=== PATIENT | male | born 1985 | race American Indian/Alaskan Native ===

== ENCOUNTER 2017-05-02 01:57 | Emergency (ER) | payer SELFPAY ==
[2017-05-02] MEDS ORDERED: DILAUDID IV ONE ×2 (02:09→02:57)
[2017-05-02] MEDS ORDERED: ZOFRAN IV ONE (02:09)
[2017-05-02] MEDS ORDERED: AMIDATE IV ONE ×3 (03:09→03:35)
--- NOTE | 2017-05-02 03:15 | XRay Report ---
FINAL REPORT PROCEDURE: XR SHOULDER 2 LT TECHNIQUE: LEFT shoulder radiographs including AP views in internal and external rotation. CPT 32750 HISTORY: deformity, pain COMPARISON: No prior studies are available for comparison. FINDINGS: There is anterior dislocation of the left glenohumeral joint. The scapula and clavicle and soft tissues are unremarkable. IMPRESSION: Anterior dislocation of the left shoulder. There is no fracture.
[2017-05-02] MEDS ORDERED: DIPRIVAN 10 MG/ML IV ONE ×2 (03:21→03:35)
[2017-05-02] MEDS ORDERED: TORADOL IV ONE (03:45)
--- NOTE | 2017-05-02 03:51 | Emergency Department Report ---
ED Upper Extremity Inj HPI - General Chief Complaint: Shoulder Injury Stated Complaint: SHOULDER PAIN Time Seen by Provider: 05/02/17 02:09 Source: patient, EMS Mode of arrival: Ambulatory Limitations: No Limitations - History of Present Illness Initial Comments: 31-year-old right-hand dominant male with history of shoulder dislocations presents to the hospital complaining of left shoulder dislocation. Patient states he has dislocated his right shoulder multiple times and this is a second time he has dislocated his left shoulder. His arms up with his hands behind his head when he felt his left shoulder slip out of place. 08/01 aching pain reported as constant, worse with movement, no alleviating factors although improved with immobilization. Patient never been evaluated by orthopedic physician. Patient has received anesthesia in the past without medication. - Related Data Previous Rx's Medication Instructions Recorded Last Taken Type Ibuprofen [Motrin] 800 mg PO Q8HR PRN #30 tablet 05/02/17 Unknown Rx traMADol [Ultram 50 MG tab] 50 mg PO Q6HR PRN #20 tablet 05/02/17 Unknown Rx Allergies Allergy/AdvReac Type Severity Reaction Status Date / Time No Known Allergies Allergy Verified 05/02/17 03:15 ED Review of Systems ROS: Stated complaint: SHOULDER PAIN Other details as noted in HPI Comment: All other systems reviewed and negative Other: Constitutional: No fevers chills Eyes: No eye pain visual changes ENT: No ear pain or throat pain Neck: Denies pain Respiratory: Denies cough wheezing shortness of breath Cardiovascular: Denies chest pain, palpitations, syncope GI: Denies abdominal pain, nausea, vomiting, diarrhea : Denies dysuria Musculoskeletal: As per HPI Skin: Denies rash, lesions, erythema Neurologic: Denies headache, numbness, weakness Psychiatric: Denies suicidal ideation, hallucinations ED Past Medical Hx - Past Medical History Previous Medical History?: Yes Additional medical history: R shoulder dislocation - Surgical History Past Surgical History?: No - Social History Smoking Status: Current Every Day Smoker Substance Use Type: Alcohol, Marijuana - Medications Home Medications: Home Medications Medication Instructions Recorded Confirmed Last Taken Type Ibuprofen [Motrin] 800 mg PO Q8HR PRN #30 tablet 05/02/17 Unknown Rx traMADol [Ultram 50 MG tab] 50 mg PO Q6HR PRN #20 tablet 05/02/17 Unknown Rx ED Physical Exam - General Limitations: No Limitations - Other Other exam information: General: No limitations, patient is alert in no acute distress Head exam: Atraumatic, normocephalic Eyes exam: Normal appearance, pupils equal reactive to light, extraocular movements intact ENT: Moist mucous membrane, normal oropharynx Neck exam: Normal inspection, full range of motion, no meningismus nontender Respiratory exam: Clear to auscultation bilateral, no wheezes, rales, crackles Cardiovascular: Normal rate and rhythm, normal heart sounds Abdomen: Soft, nondistended, and nontender, with normal bowel sounds, no rebound, or guarding Extremity: Deformity to left shoulder, held internally rotated and adducted. Movement is limited with pain in all directions. Sensation intact over the deltoid and forearm. Good hand carpenter labor supervisor Back: Normal Inspection, full range of motion, no tenderness Neurologic: Alert, oriented x3, cranial nerves intact, no motor or sensory deficit Psychiatric: normal affect, normal mood Skin: Warm, dry, intact ED Course Vital Signs 05/02/17 05/02/17 05/02/17 02:14 02:23 02:58 Temperature 98.4 F Temperature [ Intra-Procedure ] Temperature [ Pre-Procedure] Pulse Rate 108 H Pulse Rate [ Intra-Procedure ] Pulse Rate [Pre -Procedure] Respiratory 18 20 18 Rate Respiratory Rate [Intra- Procedure] Respiratory Rate [Pre- Procedure] Blood Pressure [Intra- Procedure] Blood Pressure [Pre-Procedure] Blood Pressure 135/88 [Right] O2 Sat by Pulse 99 98 Oximetry O2 Sat by Pulse Oximetry [ Intra-Procedure ] O2 Sat by Pulse Oximetry [Pre- Procedure] 05/02/17 05/02/17 05/02/17 03:16 03:20 03:24 Temperature Temperature [ 98.4 F 98.0 F Intra-Procedure ] Temperature [ 98.5 F Pre-Procedure] Pulse Rate Pulse Rate [ 108 H 107 H Intra-Procedure ] Pulse Rate [Pre 112 H -Procedure] Respiratory Rate Respiratory 24 15 Rate [Intra- Procedure] Respiratory 23 Rate [Pre- Procedure] Blood Pressure 152/100 159/92 [Intra- Procedure] Blood Pressure 164/105 [Pre-Procedure] Blood Pressure [Right] O2 Sat by Pulse Oximetry O2 Sat by Pulse 100 96 Oximetry [ Intra-Procedure ] O2 Sat by Pulse 100 Oximetry [Pre- Procedure] 05/02/17 03:26 Temperature Temperature [ 98.3 F Intra-Procedure ] Temperature [ Pre-Procedure] Pulse Rate Pulse Rate [ 99 H Intra-Procedure ] Pulse Rate [Pre -Procedure] Respiratory Rate Respiratory 16 Rate [Intra- Procedure] Respiratory Rate [Pre- Procedure] Blood Pressure 148/85 [Intra- Procedure] Blood Pressure [Pre-Procedure] Blood Pressure [Right] O2 Sat by Pulse Oximetry O2 Sat by Pulse 96 Oximetry [ Intra-Procedure ] O2 Sat by Pulse Oximetry [Pre- Procedure] - Reevaluation(s) Reevaluation #1: 05/02/17 04:30 Status post conscious sedation and reduction patient is alert. Received Toradol for residual pain. Patient received a total of Dilaudid 1 mg and 4 Zofran prior to reduction. - Moderate Sedation Indications: fracture/dislocation redu ASA Class: I Mallampati Airway Score: 1 Preparation: air sampling and monitoring applied, pulse oximeter, capnometry used, supplemental O2 applied, suction/airway equipment at bedside, IV secured IV Propofol Dose (mgs): 120 IV Etomidate Dose (mgs): 10 Complications: none Interventions: oxygen applied Patient Tolerated Procedure: well Additional Comments: Patient initially given etomidate 10 mg and became more intense and anxious. Since patient would not relax we changed to propofol IV. Patient need a total of 120 mg in order to relax enough to reduce the left shoulder. - Orthopedic Joint Reduction Joint #1 Consent Obtained: written consent Time Out Performed: Yes Side: left Joint Reduction Location: shoulder Analgesia: moderate sedation Shoulder Technique Used (if applicable): traction/counter-traction Technique Used: traction/counter-traction Post-Reduction Neuro Exam: intact Post-Reduction Vascular Exam: intact Post Reduction X-Ray Obtained: Yes Post Reduction X-Ray Results: reduced Splint Applied: Yes Patient Tolerated Procedure: well Additional Comments: Possible Hill-Sachs deformity Procedure start time 3:18 and finished at 3:31am ED Medical Decision Making - Radiology Data Radiology results: report reviewed, image reviewed (left shoulder x-ray post reduction: Successful reduction possible Hill-Sachs deformity) Left shoulder x-ray: Positive inferior anterior dislocation. No fracture - Medical Decision Making Patient successfully treated for left shoulder dislocation. Positive reduction with conscious sedation. Left arm immobilizer placed. Orthopedic follow-up will be encouraged. Pain medications will be prescribed - Differential Diagnosis fracture, dislocation, sprain Critical Care Time: No Critical care attestation.: If time is entered above; I have spent that time in minutes in the direct care of this critically ill patient, excluding procedure time. ED Disposition Clinical Impression: Recurrent dislocation, left shoulder, Hill Sachs deformity, left Disposition: DC- TO HOME OR SELFCARE Is pt being admited?: No Does the pt Need Aspirin: No Condition: Stable Instructions: Shoulder Dislocation (ED) Additional Instructions: Continue to wear the sling until cleared by the orthopedic surgeon. It is very important to follow-up so that you may undergo rehabilitation to strengthen the muscles and ligaments associated with your dislocation. There is also a mild deformity to the arm bone at the shoulder which may represent a mild fracture/ break (Hill-Sachs deformity). Take the medications as needed for pain. Prescriptions: Ibuprofen [Motrin] 800 mg PO Q8HR PRN #30 tablet PRN Reason: Pain traMADol [Ultram 50 MG tab] 50 mg PO Q6HR PRN #20 tablet PRN Reason: Pain Referrals: JEVON MANZANARES MD [Staff Physician] - 3-5 Days Time of Disposition: 04:36
[2017-05-02] MEDS ORDERED: TORADOL ONE (03:54)
[2017-05-02 05:14] VITALS: BP 129/81
--- NOTE | 2017-05-02 07:45 | XRay Report ---
LEFT SHOULDER, ONE VIEW History: Dislocation, pain, post reduction view. Findings: The anterior, inferior dislocation at the left glenohumeral joint has been reduced since 0225 hours. Alignment appears anatomic on single AP view. Normal articulation at the acromioclavicular joint. Hill-Sachs deformity is suspected along the lateral humeral head. Impression: Apparent anatomic alignment at the left shoulder. 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 MR left shoulder without contrast or MR left shoulder arthrogram would provide additional information if needed.
== END 2017-05-02 05:19 | disposition home or self-care (01) ==
LOC: ED 01:57
DX: M24.412 Recurrent dislocation, left shoulder (principal); F17.200 Nicotine dependence, unspecified, uncomplicated; F12.10 Cannabis abuse, uncomplicated; X58.XXXA Exposure to other specified factors, initial encounter; Y93.89 Activity, other specified; Y92.89 Other specified places as the place of occurrence of the external cause; Y99.8 Other external cause status
CPT/HCPCS: 23650; 73020; 73030; 96374; 96375; 96376; 99284; J1170; J1885; J2405; J2704

== ENCOUNTER 2022-04-08 21:42 | Emergency (ER) | payer SELFPAY ==
[2022-04-08] MEDS ORDERED: SODIUM CHLORIDE 0.9% 1000 ML 1,000 ML IV ONE (22:30)
[2022-04-08] MEDS ORDERED: ONDANSETRON 4 MG/2 ML INJ IV ONE (22:30)
[2022-04-08 23:33] LABS: Alanine Aminotransferase 20 units/L (7-56); Albumin 5.4 g/dL (3.9-5); BUN/Creatinine Ratio 15; Basophils % (Auto) 0.3 % (0.0-1.8); Blood Urea Nitrogen 17 mg/dL (9-20); Calcium 10.3 mg/dL (8.4-10.2); Hematocrit 44.6 % (35.5-45.6); Hemoglobin 15.1 gm/dl (11.8-15.2); Hemolysis Index 7; Lymphocytes # (Auto) 0.8 K/mm3 (1.2-5.4); Lymphocytes % (Auto) 5.5 % (13.4-35.0); Mean Corpuscular HGB Conc 34 % (32-34); Mean Corpuscular Volume 95 fl (84-94); Monocytes # (Auto) 1.4 K/mm3 (0.0-0.8); Monocytes % (Auto) 9.2 % (0.0-7.3); Platelet Count 250 K/mm3 (140-440); Red Blood Count 4.71 M/mm3 (3.65-5.03); Red Cell Distribution Width 14.5 % (13.2-15.2)
[2022-04-08 23:35] LABS: Bilirubin,Direct < 0.2 mg/dL (0-0.2)
[2022-04-08] MEDS ORDERED: MORPHINE 4 MG/1 ML INJ IV ONE (23:35)
--- NOTE | 2022-04-08 23:39 | Emergency Department Report ---
ED Abdominal Pain HPI - General Chief Complaint: Nausea/Vomiting/Diarrhea Stated Complaint: DEHYDRATION/MUSCLE CRAMPS Time Seen by Provider: 04/08/22 22:26 Source: patient, EMS Mode of arrival: Stretcher Limitations: No Limitations - History of Present Illness Initial Comments: Patient is a 36-year-old male presenting to ED with complaint of nausea and vomiting. 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 States he became extremely nauseous and vomited and states he may have aspirated some of it. States he began to cough as well. He denies any past medical history other than bipolar disorder. - Related Data Previous Rx's Medication Instructions Recorded Last Taken Type Ibuprofen [Motrin] 800 mg PO Q8HR PRN #30 tablet 05/02/17 Unknown Rx traMADoL [Ultram 50 MG tab] 50 mg PO Q6HR PRN #20 tablet 05/02/17 Unknown Rx Ondansetron [Zofran Odt] 4 mg PO Q8HR #10 tab.rapdis 04/09/22 Unknown Rx Allergies Allergy/AdvReac Type Severity Reaction Status Date / Time No Known Allergies Allergy Verified 05/02/17 03:15 ED Review of Systems ROS: Stated complaint: DEHYDRATION/MUSCLE CRAMPS Other details as noted in HPI Comment: All other systems reviewed and negative Constitutional: denies: chills, fever Respiratory: denies: cough, shortness of breath, wheezing Cardiovascular: denies: chest pain, palpitations Gastrointestinal: nausea, vomiting Musculoskeletal: denies: back pain, joint swelling, arthralgia Skin: denies: rash, lesions Neurological: denies: headache, weakness, paresthesias Psychiatric: denies: anxiety, depression ED Past Medical Hx - Past Medical History Previous Medical History?: Yes Additional medical history: R shoulder dislocation - Surgical History Past Surgical History?: No - Social History Smoking Status: Current Every Day Smoker Substance Use Type: Marijuana - Medications Home Medications: Home Medications Medication Instructions Recorded Confirmed Last Taken Type Ibuprofen [Motrin] 800 mg PO Q8HR PRN #30 tablet 05/02/17 Unknown Rx traMADoL [Ultram 50 MG tab] 50 mg PO Q6HR PRN #20 tablet 05/02/17 Unknown Rx Ondansetron [Zofran Odt] 4 mg PO Q8HR #10 tab.rapdis 04/09/22 Unknown Rx ED Physical Exam - General Limitations: No Limitations General appearance: alert, in no apparent distress - Head Head exam: Present: atraumatic, normocephalic - Respiratory Respiratory exam: Present: normal lung sounds bilaterally. Absent: respiratory distress - Cardiovascular Cardiovascular Exam: Present: regular rate, normal rhythm, normal heart sounds - GI/Abdominal GI/Abdominal exam: Present: soft. Absent: distended, tenderness - Rectal Rectal exam: Present: deferred - Neurological Exam Neurological exam: Present: alert, oriented X3 - Psychiatric Psychiatric exam: Present: normal affect, normal mood - Skin Skin exam: Present: warm, dry, intact, normal color ED Course Vital Signs 04/08/22 22:25 Temperature 98 F Pulse Rate 106 H Respiratory 18 Rate Blood Pressure 148/78 O2 Sat by Pulse 100 Oximetry ED Medical Decision Making - Lab Data Result diagrams: 04/08/22 22:52 04/08/22 22:52 - Medical Decision Making CMP grossly unremarkable. Mild leukocytosis present. Patient is afebrile. He was given 1 L normal saline bolus along with IV antiemetics. On reassessment patient is sleeping comfortably in bed. He is stable for discharge home with return precautions. Critical care attestation.: If time is entered above; I have spent that time in minutes in the direct care of this critically ill patient, excluding procedure time. ED Disposition Clinical Impression: Nausea and vomiting Disposition: 01 HOME / SELF CARE / HOMELESS Is pt being admited?: No Condition: Stable Instructions: Nausea and Vomiting, Adult Time of Disposition: 04:08
[2022-04-09] MEDS ORDERED: METOCLOPRAMIDE 10 MG/2 ML INJ IV ONE (00:55)
[2022-04-09 05:24] VITALS: BP 118/68
== END 2022-04-09 05:24 | disposition home or self-care (01) ==
LOC: ED 21:42
DX: R11.2 Nausea with vomiting, unspecified (principal)
CPT/HCPCS: 36415; 80048; 80076; 83690; 85025; 96361; 96374; 96375; 99284; J2270; J2405; J2765; J7030